=== PATIENT | female | born 1995 | race Caucasian/White ===

== ENCOUNTER 2018-11-29 18:20 | Emergency (ER) | payer SELFPAY ==
[~2018-11-29] VITALS: Ht 162.6 cm; Wt 85.0 kg
[2018-11-29] MEDS ORDERED: HYDR-4383 PO (21:52)
[2018-11-29] MEDS ORDERED: HYDROcodone/acetaminophen 5mg/325mg tablet PO ONE (22:30)
[2018-11-29 22:36] VITALS: BP 118/64
== END 2018-11-29 22:44 | disposition home or self-care (01) ==
LOC: ER 18:20
DX: K08.89 Other specified disorders of teeth and supporting structures (principal)
CPT/HCPCS: 99283